=== PATIENT | female | born 1935 | race Caucasian/White ===

== ENCOUNTER 2018-09-12 10:58 | Outpatient (CLI) | payer MEDICARE ==
[~2018-09-12] VITALS: Ht 170.2 cm; Wt 54.4 kg
[2018-09-12] MEDS ORDERED: SIMV40TA4 PO (12:17)
[2018-09-12] MEDS ORDERED: AMLO2.5T3 PO (12:17)
[2018-09-12] MEDS ORDERED: ATEN25TA PO (12:17)
[2018-09-12] MEDS ORDERED: RANI-515 PO (12:17)
[2018-09-12] MEDS ORDERED: PARO40TA3 PO (12:17)
[2018-09-12] MEDS ORDERED: WARF-48 PO (12:17)
[2018-09-12] MEDS ORDERED: HYDR-3820 PO (12:21)
== END 2018-09-12 12:22 | disposition home or self-care (01) ==
LOC: PREOP 10:58
PROVIDERS: ATTEND Orthopaedic Surgery
DX: Z01.818 Encounter for other preprocedural examination (principal)

== ENCOUNTER 2018-09-16 07:02 | Day surgery (SDC) | payer MEDICARE ==
[~2018-09-16] VITALS: Ht 170.2 cm; Wt 54.4 kg
[~2018-09-16 07:02] MED LIST: AMLO2.5T3 PO; ATEN25TA PO; HYDR-3820 PO; PARO40TA3 PO; RANI-515 PO; SIMV40TA4 PO; WARF-48 PO
[2018-09-16] MEDS ORDERED: ROCURONIUM 10 MG/ML 5 ML SYRINGE IV ONE (07:07)
[2018-09-16] MEDS ORDERED: SUCCINYLCHOLINE INJ 100 MG/5 ML SYR ONE (07:07)
[2018-09-16] MEDS ORDERED: proPOfol 200 MG/20 ML (DIPRIVAN) VIAL IV ONE (07:07)
[2018-09-16] MEDS ORDERED: ONDANSETRON 4 MG/2 ML (SDV) Z0FRAN ONE (07:07)
[2018-09-16] MEDS ORDERED: DEXAMETHASONE 10 MG/ML (DECADRON) 1 ML VIAL ONE (07:07)
[2018-09-16] MEDS ORDERED: SEVOFLURANE (ULTANE) 15 ML INHAL SOLN ONE ×3 (07:07→09:16)
[2018-09-16] MEDS ORDERED: LIDOCAINE PF 2% 5 ML (XYLOCAINE) VIAL ONE (07:07)
[2018-09-16 07:08] VITALS: BP 118/74
[2018-09-16] MEDS ORDERED: fentaNYL INJECTION 100 MCG/2 ML AMP ONE (07:08)
[2018-09-16] MEDS ORDERED: MIDAZOLAM 2 MG/2 ML (VERSED) VIAL ONE (07:09)
[2018-09-16] MEDS ORDERED: LACTATED RINGERS 1,000 ML IV PRN (07:21)
[2018-09-16] MEDS ORDERED: fentaNYL INJECTION 100 MCG/2 ML AMP IVP ONE (07:30)
[2018-09-16] MEDS ORDERED: ONDANSETRON 4 MG/2 ML (SDV) Z0FRAN IVP PRN (07:30)
[2018-09-16] MEDS ORDERED: CLINDAMYCIN 600 MG/50 ML IVPB 50 ML IV ONE (07:30)
[2018-09-16] MEDS ORDERED: FAMOTIDINE 20MG/2ML IV (PEPCID) IV ONE (07:45)
[2018-09-16] MEDS ORDERED: CATHETER FLUSH 10 ML SYR IV PRN (07:45)
[2018-09-16 07:53] LABS: INR 1.3 (0.8-1.4); PROTHROMBIN TIME PATIENT 15.9 SEC (12.2-14.7)
[2018-09-16] MEDS ORDERED: BACITRACIN 100,000 UNIT/NS 1000 ML POUR BOTTLE IR ONE ×2 (08:30)
[2018-09-16] MEDS ORDERED: BUP/EPI 0.5% 1:200,000 (SENSORCAINE) 30 ML VIAL ONE (08:46)
--- NOTE | 2018-09-16 09:14 | Discharge Inst-Simple/Standard ---
Discharge Inst-Standard Patient Instructions/Follow Up Plan of Care/Instructions/FU: may resume warfarin on 09/19/2018 keep incisions covered and dry Activity as Tolerated: No Discharge Diet: Regular Diet [facility] to [facility] For: shortness of breath chest pain MYAH ALMONTE Sep 16, 2018 09:14
[2018-09-16 10:35] VITALS: BP 168/79
[2018-09-16 11:05] VITALS: BP 130/78
[2018-09-16 11:35] VITALS: BP 138/72
[2018-09-16 12:55] VITALS: BP 138/72
--- NOTE | 2018-09-16 14:33 | Anesthesia-General Post-Op ---
General Patient Condition Mental Status/LOC: Same as Preop Cardiovascular: Satisfactory Nausea/Vomiting: Absent Respiratory: Satisfactory Pain: Controlled Complications: Absent Post Op Complications Complications None Follow Up Care/Instructions Patient Instructions None needed. Anesthesia/Patient Condition Patient Condition Patient is doing well, no complaints, stable vital signs, no apparent adverse anesthesia problems. No complications reported per nursing. TOSHIA MEDEROS CRNA Sep 16, 2018 14:33
--- NOTE | 2018-09-16 15:26 | OPERATIVE REPORT ---
DATE OF SERVICE: 09/16/2018 SURGEON: Kenny Nuñez DO AUTO ELECTRICAL TECHNICIAN: None. SPECIMENS SENT: T12 vertebral body. ESTIMATED BLOOD LOSS: Minimal. ANESTHESIA: General endotracheal tube anesthesia with local anesthetic. HISTORY OF PRESENT ILLNESS: The patient is a very pleasant 82-year-old female who presented to me with severe back pain. MRI demonstrated acute compression fractures at T11 and T12. She did wish to proceed with augmentation of this, as she could not stand the pain. DESCRIPTION OF PROCEDURE: The patient was identified by name on wrist band in the preoperative holding area. Operative site was signed, consent was signed. SCDs were placed. Antibiotics were started. She was taken to the operating room theater and placed under general endotracheal tube anesthesia and then transferred to the operating room table in the prone position. She was prepped and draped in usual sterile fashion. At this point, AP and lateral x-rays were then brought into place and centered over the pedicles of interest at T11 and T12. Formal timeout was conducted. A stab incision was made on the right side. I then advanced a Daojia introducer needle through the pedicle and into the vertebral body at T11 and T12. I obtained a vertebral body specimen at T12 and sent it to the lab for pathology. I inflated balloons into both vertebral bodies and removed the balloons. I then filled the vertebral bodies at T11 and T12 with cement. I achieved good endplate to endplate fill with no cement extravasation. At this point, I obtained final AP and lateral x-ray. The cement was in good position. I removed the introducers. I placed bandages. I placed the patient in the supine position and took her to the PACU where she awoke without incident. PLAN: At this time is to discharge the patient today. I will see her back in 2 weeks where we will initiate osteoporosis treatment. She knows to keep her wound clean and dry. Job ID: [id number] DocumentID: [id number] Dictated Date: 09/16/2018 11:00:59 Workers' Compensation Hearings Officer Date: 09/16/2018 15:25:32 Dictated By: KENNY NUÑEZ DO
--- NOTE | 2018-09-16 18:02 | Diagnostic Imaging Report ---
INDICATION: Compression fractures. TECHNIQUE: Two intraprocedural images thoracic spine. CORRELATION STUDY: None FINDINGS: Fluoroscopy utilized by Dr. Nuñez during performance of a two level kyphoplasty. While numbering is somewhat indeterminate from the images, it appears to be of the thoracic vertebral body segments. Fluoroscopy time: One minute. IMPRESSION: 1. Fluoroscopy utilized during performance of multilevel kyphoplasty. Dictated by: Dictated on workstation # [id number]
== END 2018-09-16 12:55 | disposition home or self-care (01) ==
LOC: SDC 07:02
PROVIDERS: ATTEND Orthopaedic Surgery
DX: M80.88XA Other osteoporosis with current pathological fracture, vertebra(e), initial encounter for fracture (principal); I10 Essential (primary) hypertension; I25.10 Atherosclerotic heart disease of native coronary artery without angina pectoris; E78.5 Hyperlipidemia, unspecified; I48.91 Unspecified atrial fibrillation; G47.33 Obstructive sleep apnea (adult) (pediatric); F32.9 Major depressive disorder, single episode, unspecified; K21.9 Gastro-esophageal reflux disease without esophagitis; F17.200 Nicotine dependence, unspecified, uncomplicated; Z79.899 Other long term (current) drug therapy; Z79.01 Long term (current) use of anticoagulants
CPT/HCPCS: 36415; 85610; 87081; 88304; 88311; 88341; 88342; 88364; 88365; 93005